=== PATIENT | male | born 1985 | race Caucasian/White ===

== ENCOUNTER → 2023-09-23 14:28 | Outpatient (REF) | payer OTHER, SELFPAY | LOC: RAD 14:28 | PROVIDERS: ATTENDING PHYSICIAN Nurse Practitioner; FAMILY PHYSICIAN Family Medicine | DX: S39.91XA Unspecified injury of abdomen, initial encounter (principal) | CPT/HCPCS: 76870; 93976 ==

== ENCOUNTER 2024-03-19 06:19 | Day surgery (SDC) | payer OTHER, SELFPAY | END 2024-03-19 10:57 | disposition home or self-care (01) | LOC: GI 06:19 | PROVIDERS: ATTENDING PHYSICIAN Internal Medicine Gastroenterology | DX: K62.5 Hemorrhage of anus and rectum (principal); K63.89 Other specified diseases of intestine; K62.89 Other specified diseases of anus and rectum; K62.4 Stenosis of anus and rectum; K64.8 Other hemorrhoids; K62.1 Rectal polyp | CPT/HCPCS: 45380; 88305 ==